=== PATIENT | female | born 1955 | race Caucasian/White ===

== ENCOUNTER 2016-12-17 17:19 | Emergency (ER) | payer BC ==
[2016-12-17 17:54] VITALS: BP 104/64
[2016-12-17] MEDS ORDERED: Tetan/Diph/Pertus SYR(Tdap)* 0.5 ML SYR(BOOSTRIX) use SYR IM ONE (18:14)
--- NOTE | 2016-12-17 18:42 | UC ---
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 UNSURE OF DATE OF LAST TETANUS. - History Of Current Complaint Chief Complaint: UCLaceration Stated Complaint: FINGER LACERATION Time Seen by Provider: 12/17/16 17:57 Hx Obtained From: Patient Laceration Location: Finger - left index Mechanism Of Injury: Sharp Trauma Onset/Duration: Sudden Onset, Lasting Hours, Still Present Severity: Moderate Pain Intensity: 5 Pain Scale Used: 0-10 Numeric Aggravating Factors: Nothing Related History: Dominant Hand Right - Allergies/Home Medications Allergies/Adverse Reactions: Allergies Allergy/AdvReac Type Severity Reaction Status Date / Time No Known Allergies Allergy Verified 12/17/16 17:49 Home Medications: Home Medications NK [No Home Medications Reported] 12/17/16 [History Confirmed 12/17/16] PMH/Surg Hx/FS Hx/Imm Hx Previously Healthy: Yes Endocrine History Of: Denies: Diabetes, Thyroid Disease Cardiovascular History Of: Denies: Cardiac Disorders, Hypertension Respiratory History Of: Denies: COPD, Asthma GI/ History Of: Denies: Ulcer - Surgical History Surgical History: None - Family History Known Family History: Negative: Blood Disorder - Social History Alcohol Use: Occasionally Substance Use Type: None Smoking Status (MU): Never Smoked Tobacco - Immunization History Most Recent Tetanus Shot: ?<5 YEARS Review of Systems Constitutional: Negative Skin: Other - LACERATION Respiratory: Negative Cardiovascular: Negative Gastrointestinal: Negative All Other Systems Reviewed And Are Negative: Yes Physical Exam Triage Information Reviewed: Yes Appearance: Well-Appearing, No Pain Distress, Well-Nourished Vital Signs: Initial Vital Signs Temp 98.3 F 12/17/16 17:49 Pulse 64 12/17/16 17:49 Resp 16 12/17/16 17:49 BP 104/64 12/17/16 17:49 Pulse Ox 100 12/17/16 17:49 Vital Signs Reviewed: Yes Eyes: Positive: Conjunctiva Clear ENT: Positive: Hearing grossly normal Neck: Positive: Supple Respiratory: Positive: No respiratory distress, No accessory muscle use Cardiovascular: Positive: Pulses Normal Abdomen Description: Positive: Soft Musculoskeletal: Positive: ROM Intact, No Edema Neurological: Positive: Alert Psychological: Positive: Age Appropriate Behavior Skin: Positive: Other - SKIN AVULSION LACERATION LEFT INDEX FINGER Laceration Repair - Laceration Repair 1 Description: Linear - AVULSION Laceration Size After Repair: Length (cm) - 0.7CM, Width (mm) - 0MM, Depth (mm) - 2MM Modified For Repair: No Irrigation With Pressure Irrigation Device: Yes Closure Material: Skin Adhesive, SteriStrips Laceration Course/Dx - Differential Dx - Laceration/Wound Provider Diagnoses: LACERATION REPAIR LEFT INDEX FINGER - GLUE AND STERISTRIPS Discharge - Discharge Plan Condition: Stable Disposition: HOME Patient Education Materials: Finger Laceration (ED), Steristrips (ED) Referrals: Kristi Alcantara MD [Primary Care Provider] - If Needed Additional Instructions: SEEK FOLLOW-UP IF YOU DEVELOP SPREADING REDNESS OF THE SKIN, PURULENT DRAINAGE, FEVER, INCREASED PAIN OR ANY OTHER CONCERNING SYMPTOMS. TETANUS IMMUNIZATION GIVEN (TDAP): You have been given an immunization against tetanus. Please record this in your records. In general, a booster is needed only once every 10 years. The tetanus shot protects against tetanus or "lockjaw," which is a complication of certain wound infections (the tetanus shot cannot protect against the actual infection). The immunization site may become warm and red due to local reaction. If this occurs, apply warm compresses and take aspirin or ibuprofen to reduce inflammation and discomfort. Return for evaluation if the reaction becomes severe.
== END 2016-12-17 19:00 | disposition home or self-care (01) ==
LOC: UCEAST 17:19
DX: S61.211A Laceration without foreign body of left index finger without damage to nail, initial encounter (principal); W26.0XXA Contact with knife, initial encounter; Y93.G1 Activity, food preparation and clean up; Y92.000 Kitchen of unspecified non-institutional (private) residence as the place of occurrence of the external cause; Z23 Encounter for immunization
CPT/HCPCS: 12001; 90471; 90715; 99211; G0463

== ENCOUNTER 2019-03-24 14:04 | Emergency (ER) | payer BC ==
--- OUTSIDE RECORDS SUMMARY | 2019-03-24 14:10 | XMS REPORT | Continuity of Care Document ---
:1955 External Reference #:[id number] Author Name Bonny Aleman Care Team Providers Name Role Phone Kristi Alcantara MD Primary Care Physician Unavailable Payers Date Identification Numbers Payment Provider Subscriber Policy Number: [id number] [employer]ets Jayshree Foster PayID: [id number] [address] [address] [place] [address] Family History Date Family Member(s) Observation Comments Father due to Cancer () Father due to Heart Disease () Father due to Obesity () Mother due to Alzheimer's Disease () Mother due to Parkinsons Disease () Mother due to Arthritis () Paternal Grandfather due to Cancer () Maternal Grandfather due to Heart Disease () Maternal Grandmother due to Thyroid disease () Maternal Grandmother due to Parkinsons Disease () Social History Type Date Description Comments Sex Unknown Lives With Sons Tobacco Use Start: Unknown Never Smoked Cigarettes ETOH Use Rarely consumes alcohol Tobacco Use Start: Unknown Patient has never smoked Smoking Status Reviewed: 03/14/19 Patient has never smoked Exercise Type/Frequency Exercises regularly Allergies, Adverse Reactions, Alerts Description No Known Drug Allergies Medications Active Medications SIG Qnty Indications Ordering Provider Date Xanax 1 by mouth twice Unknown 0.25mg Tablets a day Calcium Magnesium 750 1 by mouth every Unknown day 300-300mg Tablets Vital Signs Date Vital Result Comment 03/14/2019 8:35am Height 65.5 inches 5'5.50" Weight 133.00 lb Heart Rate 67 /min BP Systolic 103 mmHg BP Diastolic 56 mmHg O2 % BldC Oximetry 98 % BMI (Body Mass Index) 21.8 kg/m2 Results Test Date Facility Test Result H/L Range Note Xray 03/14/2019 [facility] Dexa Bone Study <pending> [address] [place] [address] [phone] Procedures Date Code Description Status 08/23/2018 47319 Destruction ALL Benign Or Premalignant Lesion (Other Completed Than [place] 04/25/2018 [id number] Mammogram Completed 08/18/2017 87775 Destruction ALL Benign Or Premalignant Lesion (Other Completed Than [place] 09/16/2016 [id number] Colonoscopy Completed Plan of Treatment Future Appointment(s):05/02/2019 3:30 pm - CORWIN Slaughter at [facility]03/22/2019 2:00 pm - KALEY Maya-More at [facility]03/14/2019 - Gladys Bhatia PAN95.9 Unspecified menopausal and perimenopausal disorderRecommendations:consider using BLACK COHOSH tinctures or tablets for the hot flashes for a few months. I want your sleep to be as sound as possible. use according to bottle. this can be very effective.J30.9 Allergic rhinitis, unspecifiedRecommendations:please do a trial of a neti pot for your post nasal drip , a few times a week and do a salt water gargle at eubmclpT81.20 Adjustment disorder, unspecifiedRecommendations: we discussed the benefits of MINDFULNESS FOR MANY PROTECTIONS. YOU WILL EXPLORE WHAT WORKS FOR YOU AND I gave you some resources tutu on your phone? a commitment to the 8 week MBSR series at [place] or with one of Kathy's colleagues who teaches this. this is GOLD for life. MINDFULNESS BASED STRESS REDUCTION Please begin to look at Emily Hernandez's work--podcasts on adrenals and hormones. She also has a book Adrenal Thyroid revolution. You are going to learn about your stress AXIS and what soothes it and protects you. introduce a stress reduction practice 15 minutes where you put your legs up the wall (yoga pose) or put an tutu on your phone called Stress Free by the [facility]. Guided meditations. Start to wean off of anything with white flour For now no pasta, breads, crackers. If you snack, put the dip or cheese with veggies. We want to stabilize your blood sugar so it supports you all day lone. Try to increase veggies every week When you have a birthday or Mother's Day--ask for massage, 3-4 hours of alone time, etc. Self Care. consider tinctures of passionflower or Skullcapfor anxiety/relaxation. Drink Fercho tea during the day (Holy Basil) It is good for the adrenals. iced is fine Add Ashwaganda 400mg daily adaptogen FOR THE ADRENAL RESPONSE SIGN UP FOR [id number] Unspecified urinary incontinenceRecommendations:You will get a pelvic exam one support may be a bioidentical vaginal cream
[2019-03-24 14:13] VITALS: BP 119/77
--- NOTE | 2019-03-24 14:39 | UC ---
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 she is nauseated gait is steady--- - History of Current Complaint Chief Complaint: UCDizziness Stated Complaint: DIZZY Time Seen by Provider: 03/24/19 14:09 Hx Obtained From: Patient Onset/Duration: Sudden Onset, Lasting Minutes - 30, Still Present Timing: Constant Pain Intensity: 0 Associated Signs & Symptoms: Positive: Dizziness, Nausea, Weakness - left leg - Allergy/Home Medications Allergies/Adverse Reactions: Allergies Allergy/AdvReac Type Severity Reaction Status Date / Time No Known Allergies Allergy Verified 03/24/19 14:13 PMH/Surg Hx/FS Hx/Imm Hx Previously Healthy: Yes - Surgical History Surgical History: None - Family History Known Family History: Positive: None Negative: Blood Disorder - Social History Occupation: Retired Lives: With Family Alcohol Use: Occasionally Substance Use Type: None Smoking Status (MU): Never Smoked Tobacco - Immunization History Most Recent Tetanus Shot: ?<5 YEARS Review of Systems All Other Systems Reviewed And Are Negative: Yes Constitutional: Positive: Negative Skin: Positive: Negative Eyes: Positive: Negative ENT: Positive: Negative, Dental Pain Cardiovascular: Positive: Negative Gastrointestinal: Positive: Nausea Genitourinary: Positive: Negative Motor: Positive: Weakness - left leg Neurovascular: Positive: Negative Musculoskeletal: Positive: Negative Neurological: Positive: Headache, Weakness - both arms Psychological: Positive: Negative Is Patient Immunocompromised?: No Physical Exam Triage Information Reviewed: Yes Appearance: Well-Appearing, No Pain Distress, Well-Nourished Vital Signs: Initial Vital Signs Temp 98.2 F 03/24/19 14:08 Pulse 62 03/24/19 14:08 Resp 16 03/24/19 14:08 BP 119/77 03/24/19 14:08 Pulse Ox 99 03/24/19 14:08 Vital Signs Reviewed: Yes Eye Exam: Normal Eyes: Positive: Conjunctiva Clear, Other: - perrla, eomi ENT Exam: Normal ENT: Positive: Normal ENT inspection, Hearing grossly normal. Negative: Trismus , Muffled voice, Hoarse voice Dental Exam: Normal Neck exam: Normal Neck: Positive: Supple, Nontender Respiratory Exam: Normal Respiratory: Positive: Chest non-tender, Lungs clear, Normal breath sounds, No respiratory distress, No accessory muscle use Cardiovascular Exam: Normal Cardiovascular: Positive: RRR, No Murmur, Pulses Normal, Brisk Capillary Refill Musculoskeletal Exam: Normal Musculoskeletal: Positive: Strength Intact, ROM Intact, No Edema Neurological Exam: Normal Neurological: Positive: Alert, Other: - dizziness Psychological Exam: Normal Skin Exam: Normal Diagnostics - Laboratory Lab Results: [id number]-[id number] - EKG Cardiac Rate: Bradycardia Cardiac Rhythm: Sinus: Normal Ectopy: None ST Segment: Normal Summary of EKG Findings: no comparrision available SB with Ectopy of ST seg changes Course/Dx - Course Course Of Treatment: s/l ekg, transfer to hospital via ambulance - Diagnoses Provider Diagnosis: Dizziness of unknown cause - Physician Notifications Discussed Patient Care With: Jamari Olivares - 9975 Discharge - Sign-Out/Discharge Documenting (check all that apply): Patient Departure All imaging exams completed and their final reports reviewed: No Studies - Discharge Plan Condition: Guarded Disposition: TRANS HIGHER LVL OF CARE FAC Referrals: Kristi Alcantara MD [Primary Care Provider] - - Billing Disposition and Condition Condition: GUARDED Disposition: Trans Higher Lvl of Care Fac - Attestation Statements Provider Attestation: I was available for consult. This patient was seen by the CESIA. The patient was not presented to me and I reviewed the EKG which demonstrated sinus bradycardia without any ST changes. Patient was not seen by or examined by me. I agree with the plan to transfer the patient to ER via ambulance for further evaluation. -Fartun Sanchez MD
== END 2019-03-24 14:30 | disposition short-term general hospital (02) ==
LOC: UCEAST 14:04
DX: R42 Dizziness and giddiness (principal)
CPT/HCPCS: 93005; 99213; G0463

== ENCOUNTER 2019-06-28 14:48 | Emergency (ER) | payer BC ==
--- OUTSIDE RECORDS SUMMARY | 2019-06-28 14:53 | XMS REPORT | Continuity of Care Document ---
:1955 External Reference #:[id number] Author Name CORWIN Slaughter (transmitted by agent of provider Kristine Lew) Address [facility], [place] [address] Care Team Providers Name Role Phone Kristi Alcantara MD - Family Care Team Information Senior Risk Analyst [phone] Medicine Problems Description No Information Available Social History Type Date Description Comments Sex Unknown Tobacco Use Start: Unknown Never Smoked Cigarettes ETOH Use Rarely consumes alcohol Tobacco Use Start: Unknown Patient has never smoked Smoking Status Reviewed: 04/18/19 Patient has never smoked Exercise Type/Frequency Exercises regularly Allergies, Adverse Reactions, Alerts Description No Known Drug Allergies Medications Active Medications SIG Qnty Indications Ordering Provider Date Clobetasol Propionate Apply daily to 30gm R32 Kita Cho, 03/22/2019 area REPOSSESSION AGENT-Cde 0.05% Ointment Xanax 1 by mouth twice Unknown 0.25mg Tablets a day Calcium Magnesium 750 1 by mouth every Unknown day 300-300mg Tablets Ashwagandha Unknown 500mg Capsules Immunizations Description No Information Available Vital Signs Date Vital Result Comment 04/18/2019 4:33pm Height 65.5 inches 5'5.50" Weight 133.00 lb Heart Rate 68 /min BP Systolic 116 mmHg BP Diastolic 64 mmHg O2 % BldC Oximetry 96 % BMI (Body Mass Index) 21.8 kg/m2 03/22/2019 2:06pm Height 65.5 inches 5'5.50" Weight 133.00 lb Heart Rate 61 /min BP Systolic 93 mmHg BP Diastolic 59 mmHg O2 % BldC Oximetry 98 % BMI (Body Mass Index) 21.8 kg/m2 Last Menstrual Period [id number] Results Test Date Facility Test Result H/L Range Note Laboratory test 03/24/2019 [facility] Point of Care 147 mg/dL High 70-[address] [place] [address] [phone] Medical Officer: [id number] Procedures Date Code Description Status 04/29/2019 [id number] Mammogram Completed 03/25/2019 54846 ECHO Transthorasic Realtime 2D W Doppler & Color Flow Completed Hosp 03/19/2019 [id number] Bone Mineral Density Test Completed 04/25/2018 [id number] Mammogram Completed 09/16/2016 [id number] Colonoscopy Completed Medical Devices Description No Information Available Encounters Type Date Location Provider Dx Diagnosis Office Visit 03/25/2019 [facility] Teri Kinney NP G45.9 Transient cerebral 9:34a Assoc,pc ischemic attack, Hospitalists unspecified F41.9 Anxiety disorder, unspecified Office Visit 03/24/2019 9:33a [facility] Stella G45.9 Transient Assoc,pc O'natalie, PA-Santos cerebral ischemic Hospitalists attack, unspecified F41.9 Anxiety disorder, unspecified Office Visit 03/14/2019 [facility] Bhatia, N95.9 Unspecified 8:30a [facility] menopausal and Clinic of perimenopausal Ui Application Developer disorder J30.9 Allergic rhinitis, unspecified F43.20 Adjustment disorder, unspecified R32 Unspecified urinary incontinence Assessments Date Code Description Provider 04/18/2019 R42 Dizziness and giddiness CORWIN Slaughter 04/18/2019 N95.9 Unspecified menopausal and perimenopausal CORWIN Slaughter disorder 04/18/2019 E55.9 Vitamin D deficiency, unspecified CORWIN Slaughter 04/18/2019 G47.00 Insomnia, unspecified CORWIN Slaughter 03/25/2019 R42 Dizziness and giddiness Guy Munzo M.D. 03/25/2019 R26.9 Unspecified abnormalities of gait and Guy Munoz M.D. mobility 03/25/2019 R53.1 Weakness Guy Munoz M.D. 03/25/2019 G45.9 Transient cerebral ischemic attack, Teri Gregoria, ROOF SLATER unspecified 03/25/2019 G45.9 Transient cerebral ischemic attack, Roland Chawla M.D. unspecified 03/25/2019 F41.9 Anxiety disorder, unspecified Teri Gregoria, ROOF SLATER 03/24/2019 G45.9 Transient cerebral ischemic attack, Stella Feliciano PA-C unspecified 03/24/2019 F41.9 Anxiety disorder, unspecified Stella Feliciano PA-C 03/22/2019 Z01.419 Encounter for gynecological examination Kita SalehGladys cruz (general) (routine) 03/22/2019 Z12.31 Encounter for screening mammogram for Kita ChoMERA malignant neoplasm of 03/22/2019 L90.0 Lichen sclerosus et atrophicus KALEY Maya-Roxanne 03/22/2019 R32 Unspecified urinary incontinence KALEY Maya-Roxanne 03/14/2019 N95.9 Unspecified menopausal and perimenopausal CORWIN Slaughter disorder 03/14/2019 J30.9 Allergic rhinitis, unspecified CORWIN Slaughter 03/14/2019 F43.20 Adjustment disorder, unspecified CORWIN Slaughter 03/14/2019 R32 Unspecified urinary incontinence CORWIN Slaughter Plan of Treatment Future Appointment(s):06/06/2019 4:00 pm - [facility]06/21/2019 8:00 am - Guy Munoz M.D. at [facility]04/18/2019 - WONG Slaughter42 Dizziness and giddinessRecommendations:eat regularly and awesomely restart the Ashwaganda stagger in the Black Cohosh cortisol is relatedto insulin major goal to stabilize your blood can you speak slower xetgbcznsN62.9 Unspecified menopausal and perimenopausal awjlsstoV45.9 Vitamin D deficiency, unspecifiedRecommendations:take Vit D 2000units daily with vitamin K 180 mcg in it or vymycklejiB43.00 Insomnia, unspecifiedRecommendations:please take the Magnesium EVERY night for your insomnia quinoa and sweet potatoes are good starchy carbs for you PALEO means no grains but may use almond flour and coconut in baked goods which is better for you if you have grains, whole grains inositol powder / please purchase this and work up to 6000-7000mg at bedtime, we are using this for sleep. maybe start at 4000mg Functional Status Description No Information Available Mental Status Description No Information Available Referrals Description No Information Available
--- OUTSIDE RECORDS SUMMARY | 2019-06-28 14:53 | XMS REPORT | Continuity of Care Document ---
:1955 External Reference #:[id number] Author Name Guy Munoz M.D. (transmitted by agent of provider Nallely Espinal ) Address [address] [place] [address], [place] [address] Care Team Providers Name Role Phone SivakumartunglorenzaJanee DO - Family Care Team Information Rehab Nursing Tech Medicine Problems Active Problems Provider Date Transient cerebral ischemia Guy Munoz M.D. Onset: 06/21/2019 Social History Type Date Description Comments Sex Unknown Tobacco Use Start: Unknown Never Smoked Cigarettes ETOH Use Rarely consumes alcohol Tobacco Use Start: Unknown Patient has never smoked Smoking Status Reviewed: 06/21/19 Patient has never smoked Exercise Type/Frequency Exercises regularly Allergies, Adverse Reactions, Alerts Description No Known Drug Allergies Medications Active Medications SIG Qnty Indications Ordering Provider Date Clobetasol Propionate Apply daily to 30gm R32 Kita Cho, 03/22/2019 area TREE SPECIALIST-Cde 0.05% Ointment Xanax as needed Unknown 0.25mg Tablets Calcium Magnesium 750 1 by mouth every Unknown day 300-300mg Tablets Ashwagandha Unknown 500mg Capsules Aspirin 81 1 by mouth every Unknown 81mg Tablets day DR Andrés Galindo Extract Unknown 80mg Capsules Vitamin D-1000 Maximum Unknown Strength 25mcg (1000 Ut) Tablets Vitamin K take vitamin k 10 Unknown 100mcg Tablets mg by mouth the evening before liver biopsy with dr. amanda Immunizations Description No Information Available Vital Signs Date Vital Result Comment 06/21/2019 7:51am Height 65.5 inches 5'5.50" Weight 132.12 lb Heart Rate 72 /min BP Systolic Sitting 100 mmHg BP Diastolic Sitting 54 mmHg Respiratory Rate 18 /min BMI (Body Mass Index) 21.6 kg/m2 06/06/2019 3:59pm Height 65.5 inches 5'5.50" Weight 129.12 lb Heart Rate 72 /min BP Systolic Sitting 86 mmHg BP Diastolic Sitting 56 mmHg Respiratory Rate 20 /min O2 % BldC Oximetry 98 % BMI (Body Mass Index) 21.2 kg/m2 Results Test Date Facility Test Result H/L Range Note Laboratory test 03/24/2019 [facility] Point of Care 147 mg/dL High 70-100 [address] [place] [address] [phone] Laboratory Director: [id number] Procedures Date Code Description Status 04/29/2019 [id number] Mammogram Completed 03/25/2019 95982 ECHO Transthorasic Realtime 2D W Doppler & Color Flow Completed Hosp 03/19/2019 [id number] Bone Mineral Density Test Completed 04/25/2018 [id number] Mammogram Completed 09/16/2016 [id number] Colonoscopy Completed Medical Devices Description No Information Available Encounters Type Date Location Provider Dx Diagnosis Office Visit 06/06/2019 [facility] Gladys F41.9 Anxiety disorder, 4:00p Clinic of CORWIN Truong unspecified G47.00 Insomnia, unspecified E55.9 Vitamin D deficiency, unspecified Office Visit 04/18/2019 4:30p [facility] Merlyn Slaughter Dizziness and Clinic of [facility] CORWIN callejas N95.9 Unspecified menopausal and perimenopausal disorder E55.9 Vitamin D deficiency, unspecified G47.00 Insomnia, unspecified Office Visit 03/25/2019 [facility] Guy Munoz, R42 Dizziness and 7:00a Clinic MDayna callejas R26.9 Unspecified abnormalities of gait and mobility R53.1 Weakness Office Visit 03/25/2019 9:34a [facility] Teri Kinney, G45.9 Transient Assoc,pc OFFICE MACHINE SERVICE SUPERVISOR cerebral ischemic Hospitalists attack, unspecified F41.9 Anxiety disorder, unspecified Office Visit 03/24/2019 9:33a [facility] Stella G45.9 Transient Assoc,pc Vale'natalie, PA-C cerebral ischemic Hospitalists attack, unspecified F41.9 Anxiety disorder, unspecified Office Visit 03/14/2019 [facility] Bhatia, N95.9 Unspecified 8:30a [facility] menopausal and Clinic of perimenopausal Service Engineer disorder J30.9 Allergic rhinitis, unspecified F43.20 Adjustment disorder, unspecified R32 Unspecified urinary incontinence Assessments Date Code Description Provider 06/21/2019 G45.9 Transient cerebral ischemic attack, Guy Munoz M.D. unspecified 06/06/2019 F41.9 Anxiety disorder, unspecified Gladys Jannette, PA 06/06/2019 G47.00 Insomnia, unspecified Gladys Jannette, PA 06/06/2019 E55.9 Vitamin D deficiency, unspecified Gladys Jannette, PA 04/18/2019 R42 Dizziness and giddiness Gladys Jannette, PA 04/18/2019 N95.9 Unspecified menopausal and perimenopausal Gladys GabrielJannette , PA disorder 04/18/2019 E55.9 Vitamin D deficiency, unspecified Gladys Jannette, PA 04/18/2019 G47.00 Insomnia, unspecified Gladys Jannette, PA 03/25/2019 R42 Dizziness and giddiness Guy Munoz M.D. 03/25/2019 R26.9 Unspecified abnormalities of gait and Guy Munoz M.D. mobility 03/25/2019 R53.1 Weakness Guy Munoz M.D. 03/25/2019 G45.9 Transient cerebral ischemic attack, Teri Gregoria, OFFICE MACHINE SERVICE SUPERVISOR unspecified 03/25/2019 G45.9 Transient cerebral ischemic attack, Roland Chawla M.D. unspecified 03/25/2019 F41.9 Anxiety disorder, unspecified Teri Gregoria, OFFICE MACHINE SERVICE SUPERVISOR 03/24/2019 G45.9 Transient cerebral ischemic attack, Stella Feliciano PA-C unspecified 03/24/2019 F41.9 Anxiety disorder, unspecified Stella Feliciano PA-C 03/22/2019 Z01.419 Encounter for gynecological examination Gladys Maya (general) (routine) 03/22/2019 Z12.31 Encounter for screening mammogram for Kita Cho, [facility] malignant neoplasm of 03/22/2019 L90.0 Lichen sclerosus et atrophicus Kita Cho, [facility]-Cde 03/22/2019 R32 Unspecified urinary incontinence Kita Cho, [facility]-Cde 03/14/2019 N95.9 Unspecified menopausal and perimenopausal CORWIN Slaughter disorder 03/14/2019 J30.9 Allergic rhinitis, unspecified CORWIN Slaughter 03/14/2019 F43.20 Adjustment disorder, unspecified CORWIN Slaughter 03/14/2019 R32 Unspecified urinary incontinence CORWIN Slaughter Plan of Treatment 06/21/2019 - Guy Munoz M.D.G45.9 Transient cerebral ischemic attack, unspecifiedFollow up:Follow up PRN Functional Status Description No Information Available Mental Status Description No Information Available Referrals Description No Information Available
[2019-06-28 15:12] VITALS: BP 106/68
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
== END 2019-06-28 16:56 | disposition home or self-care (01) ==
LOC: UCEAST 14:48
DX: S20.212A Contusion of left front wall of thorax, initial encounter (principal); M85.80 Other specified disorders of bone density and structure, unspecified site; Y04.0XXA Assault by unarmed brawl or fight, initial encounter; Y92.219 Unspecified school as the place of occurrence of the external cause
CPT/HCPCS: 71046; 99211; G0463

== ENCOUNTER 2019-08-06 13:56 | Emergency (ER) | payer SELFPAY ==
--- OUTSIDE RECORDS SUMMARY | 2019-08-06 14:17 | XMS REPORT | Continuity of Care Document ---
:1955 External Reference #:[id number] Author Name Travon Fuentes MD Address [address] [place] [id number] Problems Active Problems Provider Date Osteopenia Onset: 04/03/2019 Transient cerebral ischemia Onset: 03/28/2019 Inactive Problems Stomach cramps Onset: 04/08/2019 Inactive: 04/08/2019 Urinary incontinence Onset: 04/08/2019 Inactive: 04/08/2019 History of cerebrovascular accident without residual deficits Onset: 2018 Inactive: 04/08/2019 Tick bite Onset: 01/30/2019 Inactive: 01/30/2019 Social History Type Date Description Comments Sex Unknown Allergies, Adverse Reactions, Alerts Description No Known Drug Allergies Medications Active Medications SIG Qnty Indications Ordering Provider Date Alprazolam 1 twice daily as 40tabs Travon Fuentes MD 06/12/2018 0.5mg needed oral Tablets History Medications Macrobid 1 twice daily Oral 14caps Unknown 04/09/2019 - 04/16/2019 100mg Capsules Plavix 1 daily Oral 30tabs Unknown 03/28/2019 - 07/01/2019 75mg Tablets Doxycycline Hyclate 2 daily Oral 2caps Unknown 01/30/2019 - 01/31/2019 100mg Capsules Immunizations CPT Code Status Date Vaccine Lot # [id number] Given 06/19/2017 Influenza Virus Vaccine, Quadrivalent, Split, Im Use 0.25ML 87545 Given 06/19/2017 Influenza Virus Vaccine, Quadrivalent, Split, Im Use 0.25ML 68797 Given 06/19/2017 Influenza Virus Vaccine, Quadrivalent, Split, Im Use 0.25ML 48615 Given 06/19/2017 Flu < 65 years 81171 Given 06/19/2017 Influenza Virus Vaccine, Quadrivalent, Split, Preservative Free 60604 Given 06/19/2017 Flumist 50566 Given 06/19/2017 Flu High Dose 19899 Given 06/19/2017 Influenza Virus Vaccine, Split, Preserv Free, Intradermal Use 35467 Given 06/15/2017 Influenza Virus Vaccine, Split, Preserv Free, Intradermal Use 75128 Given 06/15/2017 Flu High Dose 10853 Given 06/15/2017 Flumist 86124 Given 06/15/2017 Influenza Virus Vaccine, Quadrivalent, Split, Preservative Free 46484 Given 06/15/2017 Flu < 65 years 32185 Given 06/15/2017 Influenza Virus Vaccine, Quadrivalent, Split, Im Use 0.25ML 19936 Given 06/15/2017 Influenza Virus Vaccine, Quadrivalent, Split, Im Use 0.25ML 76764 Given 06/15/2017 Influenza Virus Vaccine, Quadrivalent, Split, Im Use 0.25ML 62586 Given 02/14/2017 Zoster Shingles Vaccine For Subcutaneous Injection 94462 Given 12/25/2016 Tdap - Boostrix/Adacel 60924 Given 07/19/2016 Influenza Virus Vaccine, Split, Preserv Free, Intradermal Use 81519 Given 07/19/2016 Flu High Dose 80688 Given 07/19/2016 Flumist 30673 Given 07/19/2016 Influenza Virus Vaccine, Quadrivalent, Split, Preservative Free 35202 Given 07/19/2016 Flu < 65 years 11784 Given 07/19/2016 Influenza Virus Vaccine, Quadrivalent, Split, Im Use 0.25ML 28553 Given 07/19/2016 Influenza Virus Vaccine, Quadrivalent, Split, Im Use 0.25ML 09447 Given 07/19/2016 Influenza Virus Vaccine, Quadrivalent, Split, Im Use 0.25ML 59650 Given 06/19/2015 Influenza Virus Vaccine, Quadrivalent, Split, Im Use 0.25ML 92775 Given 06/19/2015 Influenza Virus Vaccine, Quadrivalent, Split, Im Use 0.25ML 63136 Given 06/19/2015 Influenza Virus Vaccine, Quadrivalent, Split, Im Use 0.25ML 95587 Given 06/19/2015 Flu < 65 years 47159 Given 06/19/2015 Influenza Virus Vaccine, Quadrivalent, Split, Preservative Free 73928 Given 06/19/2015 Flumist 46363 Given 06/19/2015 Flu High Dose 98644 Given 06/20/2014 Flu High Dose 17661 Given 06/20/2014 Flumist 90262 Given 06/20/2014 Influenza Virus Vaccine, Quadrivalent, Split, Preservative Free 15110 Given 06/20/2014 Flu < 65 years 81827 Given 06/20/2014 Influenza Virus Vaccine, Quadrivalent, Split, Im Use 0.25ML 98233 Given 06/20/2014 Influenza Virus Vaccine, Quadrivalent, Split, Im Use 0.25ML 47567 Given 06/20/2014 Influenza Virus Vaccine, Quadrivalent, Split, Im Use 0.25ML 58489 Given 12/03/2010 Tdap - Boostrix/Adacel 95453 Given 03/13/2006 Hep A Adult for >18 yrs Havrix/Vaqta 82334 Refused 05/16/2018 Influenza Virus Vaccine, Quadrivalent, Split, Im Use 0.25ML 01089 Refused 03/18/2014 Influenza Virus Vaccine, Quadrivalent, Split, Im Use 0.25ML 59435 Refused 03/12/2013 Influenza Virus Vaccine, Quadrivalent, Split, Im Use 0.25ML Vital Signs Date Vital Result Comment 07/01/2019 2:30pm BP Systolic 110 mmHg BP Diastolic 60 mmHg Heart Rate 66 /min Body Temperature 97.4 F O2 % BldC Oximetry 98 % 04/08/2019 8:57am BP Systolic 110 mmHg Height 65.00 inches 5'5.00" Weight 131.00 lb Heart Rate 79 /min Body Temperature 96.1 F O2 % BldC Oximetry 99 % BMI (Body Mass Index) 21.80 kg/m2 Results Test Date Facility Test Result H/L Range Note Urobilinogen-Ua N2N/CCD Import Urobilinogen-Ua neg Negative - 019 Negative SP Grav-Ua N2N/CCD Import SP Grav-Ua 1.015 _ 1.003 - 019 1.030 Protein-Ua N2N/CCD Import Protein-Ua TR 019 PH-Ua N2N/CCD Import PH-Ua 5.5 _ 5 - 7 019 Nitrite-Ua N2N/CCD Import Nitrite-Ua Negative Negative - 019 Negative Qual Leuk Est-Ua N2N/CCD Import Leuk Est-Ua 1+ High Negative - 019 Negative Qual Ketones-Ua N2N/CCD Import Ketones-Ua Negative Negative - 019 Negative Qual Glucose-Ua N2N/CCD Import Glucose-Ua Negative Negative - 019 Negative Qual Blood-Ua N2N/CCD Import Blood-Ua 1+ High Negative - 019 Negative Qual Bilirubin-Ua N2N/CCD Import Bilirubin-Ua Negative Negative - 019 Negative Qual WBC-Ua N2N/CCD Import WBC-Ua 2+(11-20/hp Abnormal Absent 019 f) Urobilinogen-Ua N2N/CCD Import Urobilinogen-Ua Negative Negative 019 SP Grav-Ua N2N/CCD Import SP Grav-Ua 1.017 _ 1.010-1.03 019 0 Appear-Ua N2N/CCD Import Appear-Ua Cloudy 019 Bacteria-Ua N2N/CCD Import Bacteria-Ua 1+ Abnormal Absent 019 Bilirubin-Ua N2N/CCD Import Bilirubin-Ua Negative Negative 019 Blood-Ua N2N/CCD Import Blood-Ua 2+ Abnormal Negative 019 Color-Ua N2N/CCD Import Color-Ua Yellow 019 Epith-Ua N2N/CCD Import Epith-Ua Present Abnormal Absent 019 Glucose-Ua N2N/CCD Import Glucose-Ua Negative Negative 019 Ketones-Ua N2N/CCD Import Ketones-Ua Negative Negative 019 Leuk Est-Ua N2N/CCD Import Leuk Est-Ua 1+ Abnormal Negative 019 Nitrite-Ua N2N/CCD Import Nitrite-Ua Positive Abnormal Negative 019 PH-Ua N2N/CCD Import PH-Ua 5.0 _ 5-9 019 Protein-Ua N2N/CCD Import Protein-Ua Negative Negative 019 RBC-Ua N2N/CCD Import RBC-Ua 1+(3-5/hpf) Abnormal Absent 019 NRBC# 07/03/19 N2N/CCD Import NRBC# 0.0 10_3/ul 019 Nitrite-Ua N2N/CCD Import Nitrite-Ua Negative Negative 019 Neut% N2N/CCD Import Neut% 66.5 % 45 - 70 % 019 Neut# N2N/CCD Import Neut# 3.5 10_3/ul 1.5-7.7 10 019 3/ul MPV N2N/CCD Import MPV 8.8 fL 7.4-10.4 019 fL [place]% N2N/CCD Import [place]% 7.4 % 0 - 10 % 019 [place]# N2N/CCD Import [place]# 0.4 10_3/ul 0-0.8 10 019 3/ul MCV N2N/CCD Import MCV 90 fL 80-97 fL 019 MCHC N2N/CCD Import MCHC 34 g/dL 31-36 g/dL 019 MCH N2N/CCD Import MCH 30 pg 27-31 pg 019 Lymph% N2N/CCD Import Lymph% 23.3 % 20 - 45 % 019 Lymph# N2N/CCD Import Lymph# 1.2 10_3/ul 1.0-4.8 10 019 3/ul Leuk Est-Ua N2N/CCD Import Leuk Est-Ua Negative Negative 019 LDL Cholesterol N2N/CCD Import LDL Cholesterol 75 mg/dL 019 Lactic Acid N2N/CCD Import Lactic Acid 0.9 mmol/L 0.5-2.0 019 mmol/L Ketones-Ua N2N/CCD Import Ketones-Ua Negative Negative 019 NRBC% N2N/CCD Import NRBC% 0.0 _ 019 PH-Ua N2N/CCD Import PH-Ua 7.0 _ 5-9 019 Platelets N2N/CCD Import Platelets 214 10_3/uL 150-450 10 019 3/uL Potassium N2N/CCD Import Potassium 4.7 mmol/L 3.5-5.0 019 mmol/L Protein, Total N2N/CCD Import Protein, Total 7.1 g/dL 6.4-8.9 019 g/dL Protein-Ua N2N/CCD Import Protein-Ua Negative Negative 019 PTT N2N/CCD Import PTT 34.4 26.0-38.0 019 seconds seconds RBC N2N/CCD Import RBC 4.51 3.70-4.87 019 10_6_/uL 10 6 /uL RDW N2N/CCD Import RDW 13 % 10-15 % 019 Sodium N2N/CCD Import Sodium 138 mmol/L 135-145 019 mmol/L SP Grav-Ua N2N/CCD Import SP Grav-Ua 1.005 _ Low 1.010-1.03 019 0 Triglycerides N2N/CCD Import Triglycerides 173 mg/dL 019 Troponin N2N/CCD Import Troponin 0.00 ng/mL <0.04 019 ng/mL Urobilinogen-Ua N2N/CCD Import Urobilinogen-Ua Negative Negative 019 WBC N2N/CCD Import WBC 5.3 10_3/uL 3.5-10.8 019 10 3/uL Glucose N2N/CCD Import Glucose 147 mg/dL High 70-100 019 mg/dL TSH N2N/CCD Import TSH 1.90 0.34-5.60 019 mcIU/mL mcIU/mL A/G Ratio N2N/CCD Import A/G Ratio 1.5 _ 1-3 019 Albumin N2N/CCD Import Albumin 4.3 g/dL 3.2-5.2 019 g/dL Alk Phos N2N/CCD Import Alk Phos 61 U/L 34-104 U/L 019 Alt N2N/CCD Import Alt 13 U/L 7-52 U/L 019 Anion Gap N2N/CCD Import Anion Gap 4 mmol/L 2-11 019 mmol/L Appear-Ua N2N/CCD Import Appear-Ua Clear 019 Ast N2N/CCD Import Ast 20 U/L 13-39 U/L 019 Baso# N2N/CCD Import Baso# 0.0 10_3/ul 0-0.2 10 019 3/ul Baso% N2N/CCD Import Baso% 0.7 % 0 - 2 % 019 Bilirubin Total N2N/CCD Import Bilirubin Total 0.30 mg/dL 0.2- 1.0 019 mg/dL Bilirubin-Ua N2N/CCD Import Bilirubin-Ua Negative Negative 019 Blood-Ua N2N/CCD Import Blood-Ua Negative Negative 019 BUN N2N/CCD Import BUN 15 mg/dL 6-24 mg/dL 019 BUN/Creat Ratio N2N/CCD Import BUN/Creat Ratio 16.5 _ 8-20 019 Calcium N2N/CCD Import Calcium 10.0 mg/dL 8.6-10.3 019 mg/dL Chloride N2N/CCD Import Chloride 103 mmol/L 101-111 019 mmol/L Cholesterol N2N/CCD Import Cholesterol 180 mg/dL 019 Co2 N2N/CCD Import Co2 31 mmol/L 22-32 019 mmol/L Color-Ua N2N/CCD Import Color-Ua Straw 019 Creatinine N2N/CCD Import Creatinine 0.91 mg/dL 0.51-0.95 019 mg/dL Eosin# N2N/CCD Import Eosin# 0.1 10_3/ul 0-0.6 10 019 3/ul Eosin% N2N/CCD Import Eosin% 2.1 % 0 - 5 % 019 GFR Afr Amer N2N/CCD Import GFR Afr Amer 75.5 _ >60 019 GFR Non Afr Amer N2N/CCD Import GFR Non Afr Amer 62.4 _ >60 019 Globulin N2N/CCD Import Globulin 2.8 g/dL 2-4 g/dL 019 Glucose N2N/CCD Import Glucose 114 mg/dL High 70-100 019 mg/dL Glucose-Ua N2N/CCD Import Glucose-Ua Negative Negative 019 HDL Cholesterol N2N/CCD Import HDL Cholesterol 70.9 mg/dL 019 Hematocrit N2N/CCD Import Hematocrit 41 % 35-47 % 019 Hemoglobin N2N/CCD Import Hemoglobin 13.6 g/dL 12.0-16.0 019 g/dL INR N2N/CCD Import INR 0.92 _ 0.82-1.09 019 Procedures Date Code Description Status 04/08/2019 63474 Brief Emotional/Behav Assessment W/ Scoring Doc Per Completed Standard Inst Medical Devices Description No Information Available Encounters Type Date Location Provider Dx Diagnosis Office Visit 07/01/2019 [facility] Main Travon Fuentes MD M94.0 Chondrocostal junction 2:30p syndrome [Tietze] Assessments Date Code Description Provider 07/01/2019 M94.0 Chondrocostal junction syndrome [Tietze] Travon Fuentes MD Plan of Treatment Future Appointment(s):07/09/2019 3:30 pm - Janee Allen DO at [facility] Main - Travon Fuentes MDM94.0 Chondrocostal junction syndrome [Tietze] Functional Status Description No Information Available Mental Status Description No Information Available Referrals Description No Information Available
--- NOTE | 2019-08-06 15:15 | ED ---
Upper Extremity Pain - HPI Summary HPI Summary: 63-year-old female presents to emergency department today complaining of pain in her left wrist after falling this afternoon. She describes the pain as a 8 out of 10 burning pain in her left wrist. She has full range of motion and strength throughout the upper extremities. She is neurovascularly intact. She states resting improves her symptoms. She denies fever, chest pain, abdominal pain, shortness of breath, numbness or tingling. - History of Current Complaint Chief Complaint: EDExtremityUpper Stated Complaint: LEFT ARM INJURY PER PT Hx Obtained From: Patient Mechanism Of Injury: Fall From A Standing Position Onset/Duration: Started Hours Ago Timing: Constant Severity Initially: Moderate Severity Currently: Mild Pain Location: Wrist Character: Burning Aggravating Factor(s): Movement Alleviating Factor(s): Rest Associated Signs & Symptoms: Positive: Swelling, Bruising. Negative: Redness, Weakness, Numbness/Tingling - Allergies/Home Medications Allergies/Adverse Reactions: Allergies Allergy/AdvReac Type Severity Reaction Status Date / Time No Known Allergies Allergy Verified 08/06/19 14:11 PMH/Surg Hx/FS Hx/Imm Hx Endocrine/Hematology History: Denies: Hx Diabetes, Hx Thyroid Disease Cardiovascular History: Reports: Hx Hypotension Denies: Hx Hypertension, Hx Pacemaker/ICD Respiratory History: Denies: Hx Asthma, Hx Chronic Obstructive Pulmonary Disease (COPD) GI History: Denies: Hx Ulcer History: Denies: Hx Renal Disease Musculoskeletal History: Comment Only: Hx Osteoporosis - OSTEOPENIA Sensory History: Denies: Hx Contacts or Glasses, Hx Hearing Aid Opthamlomology History: Denies: Hx Contacts or Glasses Psychiatric History: Denies: Hx Panic Disorder - Cancer History Hx Chemotherapy: No Hx Radiation Therapy: No - Surgical History Surgery Procedure, Year, and Place: ASPIRATION,BIOPSY BREAST Infectious Disease History: No Infectious Disease History: Denies: Hx Clostridium Difficile, Hx Hepatitis, Hx Human Immunodeficiency Virus (HIV), Hx of Known/Suspected MRSA, Hx Shingles, Hx Tuberculosis, Hx Known/ Suspected VRE, Hx Known/Suspected VRSA, History Other Infectious Disease, Traveled Outside the [place] in Last 30 Days - Family History Known Family History: Positive: None Negative: Blood Disorder - Social History Alcohol Use: Occasionally Substance Use Type: Reports: None Smoking Status (MU): Never Smoked Tobacco Review of Systems Constitutional: Negative Cardiovascular: Negative Respiratory: Negative Gastrointestinal: Negative Genitourinary: Negative Positive: Decreased ROM Skin: Negative Neurological: Negative Psychological: Normal All Other Systems Reviewed And Are Negative: Yes Physical Exam Triage Information Reviewed: Yes Vital Signs On Initial Exam: Initial Vitals Temp Pulse Resp BP Pulse Ox 97.8 F 77 18 118/79 99 08/06/19 14:08 08/06/19 14:08 08/06/19 14:08 08/06/19 14:08 08/06/19 14:08 Vital Signs Reviewed: Yes Appearance: Positive: Well-Appearing, No Pain Distress Skin: Positive: Warm, Skin Color Reflects Adequate Perfusion Head/Face: Positive: Normal Head/Face Inspection Eyes: Positive: Normal, EOMI Respiratory/Lung Sounds: Positive: Clear to Auscultation, Breath Sounds Present Cardiovascular: Positive: RRR, S1, S2 Musculoskeletal: Positive: Strength/ROM Intact, Pain @ - Right wrist at the distal ulna, Edema Right, Other - No snuffbox tenderness. Neurological: Positive: Sensory/Motor Intact, Alert, Oriented to Person Place, Time, Normal Gait, Speech Normal. Negative: Slurred Speech Psychiatric: Positive: Normal AVPU Assessment: Alert Procedures - Sedation Patient Received Moderate/Deep Sedation with Procedure: No - Splinting Right Upper Extremity Splint Applied by Provider: Jose Francisco wrap Diagnostics - Vital Signs Vital Signs Temp Pulse Resp BP Pulse Ox 08/06/19 14:08 97.8 F 77 18 118/79 99 - Laboratory Lab Statement: Any lab studies that have been ordered have been reviewed, and results considered in the medical decision making process. Course/Dx - Course Course Of Treatment: Patient was evaluated in the emergency department today for pain of her right wrist. The patient was seen and examined. An x-ray was ordered of the right wrist with which revealed no evidence of fracture. An Jose Francisco wrap was used to provide support and compression. She was told to follow-up with her primary care provider or orthopedics in next 1-2 days for further evaluation of her symptoms. She was told to return to the emergency department immediately if she develops any new or worsening symptoms. Patient agreed with plan. - Diagnoses Differential Diagnosis/HQI/PQRI: Positive: Arthritis, Contusion, Fracture ( Closed), Hematoma, Strain, Sprain Provider Diagnoses: Right wrist injury Discharge ED - Sign-Out/Discharge Documenting (check all that apply): Patient Departure - Discharge Plan Condition: Stable Disposition: HOME Patient Education Materials: Wrist Injury (ED) Referrals: Kristi Alcantara MD [Primary Care Provider] - 2 Days Cliff Hall MD [Medical Doctor] - Additional Instructions: You were seen in the emergency department today due to pain in your left wrist after a fall. An x-ray was done which showed no evidence of fracture, however it is likely that you sprained your wrist. You were put in an JOSE FRANCISCO wrap as there may be a small fracture which is unable to be seen. follow-up with orthopedics or your PCP in 1-2 days for further evaluation of injury. Return to activities tolerated. You may take ibuprofen or Tylenol for pain as needed for 1 week. - Billing Disposition and Condition Condition: STABLE Disposition: Home - Attestation Statements Provider Attestation: I was available for consult. This patient was seen by the [facility]. The patient was not presented to, seen by, or examined by me. Luigi Thomas MD
[2019-08-06 15:48] VITALS: BP 123/71
== END 2019-08-06 15:47 | disposition home or self-care (01) ==
LOC: ED 13:56
DX: S69.91XA Unspecified injury of right wrist, hand and finger(s), initial encounter (principal); W19.XXXA Unspecified fall, initial encounter; Y92.9 Unspecified place or not applicable; M19.032 Primary osteoarthritis, left wrist
CPT/HCPCS: 99282